=== PATIENT | female | born 1955 | race Caucasian/White ===

== ENCOUNTER 2017-01-19 16:40 | Inpatient (IN) ==
[2017-01-19] MEDS ORDERED: Acetaminophen 325 MG TABLET PO PRN (20:00)
[2017-01-19] MEDS ORDERED: Naloxone 0.4 MG/ML INJ IVP PRN (20:00)
[2017-01-19] MEDS ORDERED: *HR* Morphine 2 MG/ML SYRINGE IVP PRN (20:03)
--- NOTE | 2017-01-19 20:36 | Internal Med History&Physical ---
Date of Encounter: 01/19/17 Time of Encounter: 08:15 Assessment and Plan (1) Closed fracture of left distal femur Current visit: No Status: Acute Admitting patient. Consult orthopedics for recommendations and plan of care. Pain control. Physical therapy when able to tolerate. Patient will stay in hospital for at least 2 midnights. Moderate risk of complications from this condition. Qualifiers: Encounter type: initial encounter Fracture morphology: other fracture Qualified Code(s): S72.492A - Other fracture of lower end of left femur, initial encounter for closed fracture (2) Multiple sclerosis Current visit: Yes Status: Chronic And other home medications for this condition. Currently symptoms are well controlled. (3) Lupus Current visit: Yes Status: Chronic Continue prednisone and Imuran. Qualifiers: Systemic lupus erythematosus type: other Systemic lupus erythematosus organ involvement: other Qualified Code(s): M32.19 - Other organ or system involvement in systemic lupus erythematosus (4) Essential hypertension Current visit: Yes Status: Chronic Monitor blood pressure. Currently well controlled. Continue home medications. (5) Gastroesophageal reflux disease Current visit: Yes Status: Chronic Continue PPI. Qualifiers: Esophagitis presence: without esophagitis Qualified Code(s): K21.9 - Gastro -esophageal reflux disease without esophagitis (6) COPD (chronic obstructive pulmonary disease) Current visit: Yes Status: Chronic We will use nebs as needed. Currently not in acute exacerbation Qualifiers: COPD type: chronic bronchitis Chronic bronchitis type: simple Qualified Code(s): J41.0 - Simple chronic bronchitis Internal Medicine - H&P: HPI Chief complaint: A fall and left leg pain Admitted From: Emergency Dept Plans for Post Hospital Care: [facility] History of present illness: Ms. Gtz is a 62 year old female with a history of multiple sclerosis, lupus, transverse myelitis, COPD with decreased ambulation due to left-sided weakness presented to the ER after a fall that occurred as she was getting out of the shower. Patient appears to have slipped and fell. She began to have severe left-sided leg pain and was taken to the ER. In the ER, she had an x- ray done which showed distal left femur fracture. She was then transferred here for admission and evaluation by orthopedics. Presently the patient says the pain is about 4 out of 10 in severity and does not bother her much when she does not move and just lies in bed. Denies any numbness in her leg. At baseline, patient ambulates short distances with help of a walker. She does not have any shortness of breath with this. Her COPD is well controlled and she only uses rescue inhalers once in a while. Does not have any history of cardiac disease. Past Med Surg Social Fam HX - Past Medical History Attestation: Yes The following information was validated with the patient. Medical history: COPD, hypertension, other (MS, lupus, transverse myelitis) Psychiatric history: no psych history - Past Surgical History Surgical History: no surgical history - Social History Smoking Status: Former smoker Alcohol use: none Drug use: none - Additional Family History Additional family history: Reviewed and found to be noncontributory to this time Internal Medicine - H&P: Meds Azathioprine [Imuran] 150 mg PO DAILY 01/19/17 [History] Gabapentin [Neurontin] 200 mg PO BID 01/19/17 [History] Hydrochlorothiazide 25 mg PO DAILY 01/19/17 [History] Methocarbamol [Robaxin] 500 mg PO Q8HR 01/19/17 [History] PredniSONE [Alysha] 5 mg PO DAILY 01/19/17 [History] Allergies codeine Adverse Reaction (Verified 04/13/16 14:57) Shakiness All Systems PM: A 10-system review of systems was performed and is negative for pertinent findings except as documented above in the HPI. - Constitutional Constitutional: falls, no chills, no fever(s), no night sweats - EENT Eyes: no change in vision, no discharge, no pain, no photophobia Nose, mouth and throat: no dysphagia, no nasal discharge, no neck pain, no sore throat - Cardiovascular Cardiovascular ROS IM: no chest pain, no diaphoresis, no dyspnea, no lightheadedness, no palpitations, no syncope - Respiratory Respiratory: no cough, no dyspnea, no wheezing, no excessive phlegm production - Gastrointestinal Gastrointestinal: no abdominal pain, no diarrhea, no hematemesis, no hematochezia, no melena, no nausea, no vomiting - Genitourinary Genitourinary: no change in urinary stream, no dysuria, no flank pain, no hematuria - Musculoskeletal Musculoskeletal ROS IM: other (Left leg pain), no numbness, no tingling - Integumentary Integumentary IM: no rash, no unusual bruising - Neurological Neurological ROS: no confusion, no convulsions, no focal weakness, no numbness, no tingling, no tremor(s) - Hematologic/Lymphatic Hematologic/Lymphatic: no easy bruising - Constitutional Vitals: Temp Pulse Resp BP Pulse Ox 97.4 F L 83 19 109/73 93 L 01/19/17 20:00 01/19/17 20:00 01/19/17 20:00 01/19/17 20:00 01/19/17 20:00 General appearance: Present: cooperative, mild distress, A&O X 3, pleasant, answers questions appropriately - Eye Eye exam: Present: EOMI, PERRL, conjuntiva pink, sclera anicteric - ENT ENT exam: Present: mucous membranes moist - Neck Neck exam general surgery: Present: supple, trachea midline. Absent: lymphadenopathy - Respiratory Respiratory exam: Present: CTAB. Absent: accessory muscle use, rales, rhonchi, wheezes - Cardiovascular Cardiovascular exam: Present: RRR, +S1, +S2. Absent: diastolic murmur, gallop, rubs, systolic murmur - GI/Abdominal GI/Abdominal exam: Present: normal bowel sounds, soft, no peritoneal signs. Absent: distended, tenderness - Extremities Exam Extremities exam: Present: tenderness (Left thigh with decreased range of motion in the left lower extremity due to pain), warm, radial pulses palpable and symetrical. Absent: calf tenderness, cyanotic, pedal edema - Neurological Exam Neurological exam: Present: CN II-XII intact, oriented X3, no focal deficits. Absent: pronater drift, facial droop, speech deficit - Psychiatric Psychiatric exam: Present: normal affect, normal mood - Skin Skin exam: Present: dry, intact Internal Med - H&P Results - Labs Labs: WBC 9.6, hemoglobin 12.7, platelets 338 PT 14.5, INR 1.3, sodium 143, potassium 3.3 - Impressions Left femur x-rays shows a spiral fracture in the left distal femur region. - Attending Attestation This document has been at least partially created by [employer] recognition technology by Dr. Sanchez. Errors in grammar, wording or other phrases may exist. If errors are found after the documentation is signed, they will be addressed individually in the addendum section of this document when appropriate.
[2017-01-19] MEDS: Gabapentin 100 MG CAPSULE PO SCH (23:05)
[2017-01-19] MEDS: Methocarbamol 500 MG TABLET PO SCH (23:05)
[2017-01-19] MEDS: 0.9 % Sodium Chloride 1,000 ML IVC SCH (23:07)
[2017-01-20] MEDS: 0.9 % Sodium Chloride 1,000 ML IVC SCH ×3 (05:15→13:29)
[2017-01-20] MEDS ORDERED: Ipratropium/Albuterol Neb 3 ML IH PRN ×2 (05:32→14:14)
[2017-01-20] MEDS ORDERED: *HR* Enoxaparin 40 MG/0.4 ML SYRINGE SQ SCH (06:00)
--- NOTE | 2017-01-20 07:21 | Anesthesia Evaluation PreOp ---
Date of Encounter: 01/20/17 Time of Encounter: 07:30 - Past History Planned Operation: IM Nailing Left Femur Cardiac History: HTN Pulmonary History: COPD CASH APPLICATION REPRESENTATIVE History: Other (Multiple Sclerosis, Transverse Myelitis) Other Medical History: GERD, Other (Lupus...on prednisone and Imuran) Anesthesia History: No Prior Anesthetic Complications : No Alcohol Use: none Drug use: none Medications and Allergies Ampyra 10 PO Q12HR 01/19/17 [History] Azathioprine 50 PO TID 01/19/17 [History] Calcium 01/19/17 [History] Cetirizine HCl 10 PO DAILY 01/19/17 [History] Cyclobenzaprine [Flexeril] 10 PO DAILY 01/19/17 [History] Fish Oil 01/19/17 [History] Hydrochlorothiazide 25 PO DAILY 01/19/17 [History] Loratadine 10 PO DAILY 01/19/17 [History] Methocarbamol 500 PO Q8HR 01/19/17 [History] Mucinex 600 PO Q12HR PRN 01/19/17 [History] Neurontin 100 PO TID 01/19/17 [History] Raymond 5-325 mg PO Q6HR PRN 01/19/17 [History] Omeprazole 40 mg PO DAILY 01/19/17 [History] Oxybutynin 5 tab PO DAILY 01/19/17 [History] Potassium 3XW 01/19/17 [History] Prednisone 5 PO DAILY 01/19/17 [History] Stool Softener 01/19/17 [History] Vitamin C 01/19/17 [History] Vitamin D3 2,000 PO DAILY 01/19/17 [History] Allergies codeine Adverse Reaction (Verified 04/13/16 14:57) Shakiness - Meds/Allergy Pre-op Review Medications Reviewed: Yes Allergies Reviewed: Yes Anesthesia Results - Labs Laboratory Tests 01/19/17 01/19/17 01/19/17 16:28 16:28 16:28 Plt Count 338 PT 14.5 H INR 1.3 Sodium 143 Potassium 3.3 L BUN 14 Creatinine 0.78 - Imaging EKG: pending Anesthesia Exam O2 Sat Height 1.7 m Weight 86.183 kg O2 Sat by Pulse Oximetry 94 O2 Sat by Pulse Oximetry 92 O2 Sat by Pulse Oximetry 96 O2 Sat by Pulse Oximetry 93 Vital Signs Temp Pulse Resp BP Pulse Ox 97.4 F L 83 19 109/73 93 L 01/19/17 20:00 01/19/17 20:00 01/19/17 20:00 01/19/17 20:00 01/19/17 20:00 Vital Signs/O2 Sat/Glucose, Most Current Temp Pulse Resp BP Pulse Ox 01/20/17 06:20 97.9 F 95 18 123/67 94 L 01/20/17 04:00 98.2 F 100 17 96/61 92 L Height: 5'7 Weight: 190 lbs NPO (# of Hours): MN - HEENT Pupil (Motor): Pupils equal, EOMI Mallampati: II Oral Opening: Greater than 3 - CASH APPLICATION REPRESENTATIVE LOC: Oriented CASH APPLICATION REPRESENTATIVE Motor: Normal RUE, Normal LUE, Normal RLE, Normal LLE, Normal Face CASH APPLICATION REPRESENTATIVE Sensory: Normal: RUE, LUE, RLE, LLE, Face - Cardiac Rhythm: Regular Murmur: None JVD: No Carotid Bruit: No - Pulmonary Breath Sounds: bilateral Clear Respiratory Effort: Symmetrical Anesthesia Assess/Plan ASA Score: 3 (HTN MS Lupus Gerd COPD) Modified Yin Scale for Level of Consciousness: Cooperative, oriented, and tranquil Anesthetic Plan: General Monitoring Plan: Standard Monitors Recovery Plan: PACU (Discussed GA, agrees to proceed)
[2017-01-20] MEDS: Gabapentin 100 MG CAPSULE PO SCH ×2 (07:54→20:46)
[2017-01-20] MEDS: Methocarbamol 500 MG TABLET PO SCH ×3 (07:54→23:28)
[2017-01-20] MEDS ORDERED: Dexamethasone 4 MG/ML VIAL ONE (08:26)
[2017-01-20] MEDS ORDERED: *HR* FentaNYL (PF) 100 MCG/2 ML VIAL ONE (08:26)
[2017-01-20] MEDS ORDERED: Ondansetron 4 MG/2 ML VIAL ONE (08:26)
[2017-01-20] MEDS ORDERED: *HR* Succinylcholine 200 MG/10 ML VIAL IVP ONE (08:26)
[2017-01-20] MEDS ORDERED: Lidocaine -MPF 2% 2 ML VIAL ONE ×3 (08:26→13:30)
[2017-01-20] MEDS ORDERED: *HR* Propofol 200 MG/20 ML VIAL IVP ONE ×2 (08:26→11:35)
[2017-01-20] MEDS ORDERED: Lidocaine -MPF 4% 5 ML AMPUL ONE (08:27)
[2017-01-20] MEDS ORDERED: Albuterol 2.5 MG/3 ML NEBULIZER IH ONE (08:37)
[2017-01-20] MEDS ORDERED: Albuterol 2.5 MG/3 ML NEBULIZER ONE (08:37)
[2017-01-20] MEDS ORDERED: Acetaminophen IV 1,000 MG/100 ML INFUS..BTL ONE (08:39)
[2017-01-20] MEDS ORDERED: Famotidine 20 MG/2 ML VIAL ONE (08:39)
[2017-01-20] MEDS ORDERED: *HR* Rocuronium Bromide 50 MG/5 ML VIAL ONE (08:56)
[2017-01-20] MEDS ORDERED: predniSONE 5 MG TABLET PO SCH (09:00)
[2017-01-20] MEDS ORDERED: AMPYRA 10 MG PO SCH (09:00)
[2017-01-20] MEDS ORDERED: hydroCHLOROthiazide 25 MG TABLET PO SCH (09:00)
[2017-01-20] MEDS ORDERED: *HR* HYDROmorphone 2 MG/ML SYRINGE ONE (09:23)
[2017-01-20] MEDS ORDERED: ceFAZolin 2,000 MG in D5% in Water 100 ML IVPB ONE (10:15)
[2017-01-20] MEDS ORDERED: Ondansetron 4 MG/2 ML VIAL IVP ONE ×2 (13:18→14:14)
[2017-01-20] MEDS ORDERED: *HR* HYDROmorphone (PF) 1 MG/ML SYRINGE IVP PRN (13:18)
--- NOTE | 2017-01-20 14:02 | Orthopedic Consult Note ---
Date of Encounter: 01/20/17 Time of Encounter: 08:05 Assessment and Plan (1) Closed fracture of left distal femur Current Visit: No Status: Acute Displaced left distal femur fracture, no intra-articular extension. Plan: Recommend a retrograde femoral nail. The risks, benefits alternatives were discussed with the patient and the family. Qualifiers: Encounter type: initial encounter Fracture morphology: other fracture Qualified Code(s): S72.492A - Other fracture of lower end of left femur, initial encounter for closed fracture History of Present Illness Chief complaint: Left thigh pain HPI: Ms. Gtz is a 62 year old female who is a minimal ambulator secondary to multiple sclerosis and lupus. Patient fell last night getting out of the shower , sustaining a left distal femur fracture. She is brought to the emergency room by squad, and admitted for surgical management. She denies dizziness prior to fall, and no loss of consciousness after the fall. She sustained no head injuries. Reports no chest pain shortness breath. Patient normally uses a motorized scooter to get around but can do minimal ambulation mainly using the right lower extremity. The left lower extremity is mainly affected. Past Med Surg Social Fam HX - Past Medical History Medical history: arthritis, COPD, GERD, hypertension, other Psychiatric history: no psych history - Past Surgical History Surgical History: hysterectomy - Social History Smoking Status: Former smoker Alcohol use: none Drug use: none - Family History Mother Living Status: Still Living Hx Family Cardiac Disorders: No Hx Family Respiratory Disorders: Yes Hx Family Cancer: Yes Hx Family GI Disorders: No Hx Family Genitourinary Disorders: No Hx Family Endocrine Disorder: No Hx Family Musculoskeletal Disorders: No Hx Family Neuromuscular Disorders: No Hx Family Neurologic Disorders: No Hx Family HEENT Disorders: No Hx Family Autoimmune Disorders: No Hx Family Reproductive Disorders: No Hx Family Psychosocial Disorders: No Hx Family Medical Disorders: No Medications and Allergies Ampyra 10 PO Q12HR 01/19/17 [History] Azathioprine 50 PO TID 01/19/17 [History] Calcium 01/19/17 [History] Cetirizine HCl 10 PO DAILY 01/19/17 [History] Cyclobenzaprine [Flexeril] 10 PO DAILY 01/19/17 [History] Fish Oil 01/19/17 [History] Hydrochlorothiazide 25 PO DAILY 01/19/17 [History] Loratadine 10 PO DAILY 01/19/17 [History] Methocarbamol 500 PO Q8HR 01/19/17 [History] Mucinex 600 PO Q12HR PRN 01/19/17 [History] Neurontin 100 PO TID 01/19/17 [History] [place]ena 5-325 mg PO Q6HR PRN 01/19/17 [History] Omeprazole 40 mg PO DAILY 01/19/17 [History] Oxybutynin 5 tab PO DAILY 01/19/17 [History] Potassium 3XW 01/19/17 [History] Prednisone 5 PO DAILY 01/19/17 [History] Stool Softener 01/19/17 [History] Vitamin C 01/19/17 [History] Vitamin D3 2,000 PO DAILY 01/19/17 [History] Allergies codeine Adverse Reaction (Verified 04/13/16 14:57) Shakiness All Systems Reviewed: A 10-system review of systems was performed and is negative for pertinent findings except as documented above in the HPI. Physical Exam - Constitutional Vitals: Temp Pulse Resp BP Pulse Ox 99 F 98 16 133/95 96 01/20/17 13:42 01/20/17 13:52 01/20/17 13:52 01/20/17 13:52 01/20/17 13:52 - Fracture left femur Appearance: normal Open wound: No Compartments: soft Distal extremity neurovascularly intact: Yes (Inversion of foot which is a baseline) Proximal joint involvement: No Distal joint involvement: Yes (Limited motion of knee surgery pain) Other injury: muscle injury: no, tendon injury: no, ligament injury: no, vascular injury: no, nerve injury: no Results - Labs Labs: All other labs normal. - Diagnostic results Knee x-ray: image reviewed (Displaced distal femur fracture, spiral type) Consult Discharge Plan - Plan Referrals: Sagar Triplett DO [Primary Care Provider] -
--- NOTE | 2017-01-20 14:12 | Anesthesia Evaluation Post Op ---
Date of Encounter: 01/20/17 Time of Encounter: 14:10 - Vital Signs Vital Signs: Vital Signs/O2 Sat/Glucose, Most Current Temp Pulse Resp BP Pulse Ox 01/20/17 14:02 100 16 116/73 94 L 01/20/17 13:52 98 16 133/95 96 01/20/17 13:42 99 F 106 16 118/102 100 - Lungs Lungs: Clear Ascult./Percussion - Airway Airway: Non-obstructed - Cardiovascular Regular Rate - Mental Status Mental Status: Alert & Oriented, Answers Appropriately - Pain Pain Scale: 0 - Nausea Vomiting Nausea Vomiting: Not Present - Hydration Hydration: Ice chips - Discharge PostOp Status: Transfer Patient to floor
[2017-01-20] MEDS ORDERED: Acetaminophen 325 MG TABLET PO PRN (14:14)
[2017-01-20] MEDS ORDERED: Naloxone 0.4 MG/ML INJ IVP PRN ×2 (14:14)
[2017-01-20] MEDS ORDERED: 0.9 % Sodium Chloride 1,000 ML IVC SCH (14:14)
[2017-01-20] MEDS ORDERED: *HR* Morphine 2 MG/ML SYRINGE IVP PRN (14:14)
[2017-01-20] MEDS ORDERED: *HR* OxyCODONE Immed Rel 5 MG TABLET PO PRN (14:14)
[2017-01-20] MEDS ORDERED: Ringers Solution, Lactated 1,000 ML IVC SCH (14:15)
[2017-01-20] MEDS: ceFAZolin 2,000 MG in D5% in Water 100 ML IVPB SCH ×2 (16:08→23:28)
--- NOTE | 2017-01-20 17:13 | Internal Med Progress Note ---
Date of Encounter: 01/20/17 Time of Encounter: 17:09 - Assessment and plan (1) Closed fracture of left distal femur Current Visit: No Status: Acute Assessment and plan: Displaced left distal femur fracture, no intra-articular extension. s/p IM Nailing Left Femur today with Dr. Elias. post op care as per ortho DVT prophylaxis. Qualifiers: Encounter type: initial encounter Fracture morphology: other fracture Qualified Code(s): S72.492A - Other fracture of lower end of left femur, initial encounter for closed fracture (2) COPD (chronic obstructive pulmonary disease) Current Visit: Yes Status: Chronic Assessment and plan: stable, not on home o2. continue home inhalers Qualifiers: COPD type: chronic bronchitis Chronic bronchitis type: simple Qualified Code(s): J41.0 - Simple chronic bronchitis (3) Essential hypertension Current Visit: Yes Status: Chronic Assessment and plan: stable (4) Gastroesophageal reflux disease Current Visit: Yes Status: Chronic Assessment and plan: stable Qualifiers: Esophagitis presence: without esophagitis Qualified Code(s): K21.9 - Gastro -esophageal reflux disease without esophagitis (5) Multiple sclerosis Current Visit: Yes Status: Chronic (6) UTI (urinary tract infection) Current Visit: Yes Status: Acute Assessment and plan: will continue ceftriaxone , follow urine cx results. Qualifiers: Urinary tract infection type: acute cystitis Hematuria presence: with hematuria Qualified Code(s): N30.01 - Acute cystitis with hematuria - Time Spent With Patient 25 - 35 minutes - Subjective Interval history: seen at the bedside, appears in no acute distress pain adequately controlled reports that she has COPD and does not wear o2 at home - Constitutional Vitals: Temp Pulse Resp BP Pulse Ox 97.7 F 77 16 97/65 97 01/20/17 16:03 01/20/17 16:03 01/20/17 16:03 01/20/17 16:03 01/20/17 16:03 General appearance: Present: cooperative, A&O X 3, pleasant, answers questions appropriately Exam: - Eye Eye exam: Present: EOMI, PERRL, conjuntiva pink, sclera anicteric - ENT ENT exam: Present: mucous membranes moist - Neck Neck exam general surgery: Present: supple, trachea midline. Absent: lymphadenopathy - Respiratory Respiratory exam: Present: CTAB. Absent: accessory muscle use, rales, rhonchi, wheezes - Cardiovascular Cardiovascular exam: Present: RRR, +S1, +S2. Absent: diastolic murmur, gallop, rubs, systolic murmur - GI/Abdominal GI/Abdominal exam: Present: normal bowel sounds, soft, no peritoneal signs. Absent: distended, tenderness - Extremities Exam Extremities exam: Present: tenderness (Left thigh with decreased range of motion in the left lower extremity due to pain), warm, radial pulses palpable and symetrical. Absent: calf tenderness, cyanotic, pedal edema - Neurological Exam Neurological exam: Present: CN II-XII intact, oriented X3, no focal deficits. Absent: pronater drift, facial droop, speech deficit - Psychiatric Psychiatric exam: Present: normal affect, normal mood - Skin Skin exam: Present: dry, intact Internal Medicine: Result - Impressions Impressions Femur X-Ray 01/20/17 09:10 IMPRESSION: Status post ORIF for a closed spiral fracture distal shaft left femur. D/ / 01/20/2017 14:21:20 Henri Garcia MD / [place] Interpreting Provider: Henri Garcia MD Fluoroscopy 01/20/17 09:10 IMPRESSION: Status post ORIF for a closed spiral fracture distal shaft left femur. D/ / 01/20/2017 14:21:20 Henri Garcia MD / [place] Interpreting Provider: Henri Garcia MD - VTE Documentation of Mechanical Device: Intermittent pneumatic compression device Consult Discharge Plan - Plan Referrals: Sagar Triplett DO [Primary Care Provider] -
[2017-01-20] MEDS: *HR* HYDROcodone/Acet 5/325 mg TABLET PO PRN (18:52)
[2017-01-20] MEDS: AMPYRA 10 MG PO SCH (20:47)
[2017-01-21 04:54] LABS: Hematocrit 26.7 % (35.3-44.9); Hemoglobin 8.6 g/dL (11.5-15.4)
[2017-01-21 05:08] LABS: BUN/Creatinine Ratio 12 (6-26); Blood Urea Nitrogen 8 mg/dL (7-20); Calcium 8.3 mg/dL (8.6-10.8); Carbon Dioxide 27 mEq/L (19-29); Chloride 108 mEq/L (98-109); Glucose 96 mg/dL (70-99); Osmolality,Calculated 292 (280-300); Potassium 3.6 mEq/L (3.5-4.5); Sodium 142 mEq/L (136-145); eGFR For African Americans > 60 (> 60); eGFR For Non-African Americans > 60 (> 60)
[2017-01-21] MEDS: *HR* Enoxaparin 40 MG/0.4 ML SYRINGE SQ SCH (06:40)
--- NOTE | 2017-01-21 07:34 | Electrocardiograph Report ---
[place] [address] Test Date: 2017-01-20 Pat Name: Brenda Gtz Department: 114 Room: [facility] Gender: F Jar Filler: : 1955 Requested By: Cornelius Jin Order Number: [id number] Reading MD: Immanuel Bolden MD Measurements Intervals [place] Rate: 95 P: 82 IL: 153 QRS: 39 QRSD: 97 T: 62 QT: 367 QTc: 420 Interpretive Statements SINUS RHYTHM WITH SINUS ARRHYTHMIA Electronically Signed On 01-21-2017 7:32:16 EST by Immanuel Bolden MD
[2017-01-21] MEDS: Gabapentin 100 MG CAPSULE PO SCH ×2 (08:28→22:06)
[2017-01-21] MEDS: predniSONE 5 MG TABLET PO SCH (08:28)
[2017-01-21] MEDS: Methocarbamol 500 MG TABLET PO SCH ×2 (08:28→14:51)
[2017-01-21] MEDS: hydroCHLOROthiazide 25 MG TABLET PO SCH (08:28)
[2017-01-21] MEDS: AMPYRA 10 MG PO SCH ×2 (08:29→22:06)
[2017-01-21] MEDS: *HR* HYDROcodone/Acet 5/325 mg TABLET PO PRN ×2 (09:46→22:10)
--- NOTE | 2017-01-21 16:11 | Orthopedics Progress Note ---
Date of Encounter: 01/21/17 Time of Encounter: 12:50 - Assessment and Plan (1) Closed fracture of left distal femur Current Visit: No Status: Acute POD#1 - Patient doing well. pain well controlled. May now DC brace and begin gentle ROM of knee. Continue NWB. Plan for her to go to ECF upon discharge Will follow up with Kelsey Canales PA-C in [facility] office in 2 weeks. Qualifiers: Encounter type: initial encounter Fracture morphology: other fracture Qualified Code(s): S72.492A - Other fracture of lower end of left femur, initial encounter for closed fracture Subjective Principal diagnosis: POD#1 s/p left retrograde femoral nail Interval history: Patient doing well today with no events overnight and no concerns. Pain well controlled. Denies new n/t in lower extremities but does have chronic numbness. Afebrile. Currently receiving 1 unit blood. Hgb 8.6 Objective Vital signs: Vital Signs Temp Pulse Resp BP Pulse Ox 01/21/17 13:03 98.2 F 102 16 126/77 95 01/21/17 12:48 98.2 F 104 16 122/76 96 01/21/17 11:02 97.9 F 98 16 118/68 93 L 01/21/17 06:39 98.1 F 96 14 101/64 95 01/21/17 04:10 98.2 F 93 18 102/61 93 L 01/20/17 23:31 98.0 F 100 14 104/65 94 L 01/20/17 20:36 98.5 F 97 16 112/72 95 01/20/17 18:52 95 01/20/17 17:10 97.3 F L 102 16 113/71 98 Intake and Output 01/21/17 01/21/17 01/21/17 07:59 15:59 23:59 Intake Total 100 / 100 580 / 580 Output Total 650 / 650 Balance 100 / 100 -70 / -70 Intake: IV Fluids 100 / 100 100 / 100 Ancef 2,000 MG In 100 / 100 Dextrose 5% 100 ML @ 200 mls/hr IVPB Q8HR [facility] Rx#: [id number] Rocephin 1,000 MG In 100 / 100 Dextrose 5% (Minibag+) 100 ML 100 ML @ 200 mls/ hr IVPB DAILY [facility] Rx#: [id number] Oral 480 / 480 Blood Product 0 / 0 Rbcs Leuko Poor As-1 0 / 0 Unit [id number] Output: Catheter 650 / 650 Other: Meal Breakfast Percent of Meal Consumed 30% Incision: clean and dry (brace and post-op dressings intact, no visible drainage , good dorsiflexion of foot, NV intact) - Labs CBC & BMP: 01/21/17 04:11 01/21/17 04:11 Labs: Abnormal lab results Hgb 8.6 g/dL (11.5-15.4) L D 01/21/17 04:11 Hct 26.7 % (35.3-44.9) L 01/21/17 04:11 Calcium 8.3 mg/dL (8.6-10.8) L D 01/21/17 04:11 - VTE Documentation of Mechanical Device: Intermittent pneumatic compression device Consult Discharge Plan - Plan Referrals: Sagar Triplett DO [Primary Care Provider] -
--- NOTE | 2017-01-21 17:11 | Internal Med Progress Note ---
Date of Encounter: 01/21/17 Time of Encounter: 17:08 - Assessment and plan (1) Closed fracture of left distal femur Current Visit: No Status: Acute Assessment and plan: Displaced left distal femur fracture, no intra-articular extension. s/p IM Nailing Left Femur with Dr. Elias. POD#1 - Patient doing well. pain well controlled. post op care as per ortho DVT prophylaxis. Qualifiers: Encounter type: initial encounter Fracture morphology: other fracture Qualified Code(s): S72.492A - Other fracture of lower end of left femur, initial encounter for closed fracture (2) COPD (chronic obstructive pulmonary disease) Current Visit: Yes Status: Chronic Assessment and plan: stable, not on home o2. continue home inhalers Qualifiers: COPD type: chronic bronchitis Chronic bronchitis type: simple Qualified Code(s): J41.0 - Simple chronic bronchitis (3) Essential hypertension Current Visit: Yes Status: Chronic Assessment and plan: stable (4) Gastroesophageal reflux disease Current Visit: Yes Status: Chronic Assessment and plan: stable Qualifiers: Esophagitis presence: without esophagitis Qualified Code(s): K21.9 - Gastro -esophageal reflux disease without esophagitis (5) Multiple sclerosis Current Visit: Yes Status: Chronic (6) UTI (urinary tract infection) Current Visit: Yes Status: Acute Assessment and plan: [facility] to oral at [facility]. Qualifiers: Urinary tract infection type: acute cystitis Hematuria presence: with hematuria Qualified Code(s): N30.01 - Acute cystitis with hematuria - Time Spent With Patient 25 - 35 minutes - Subjective Interval history: seen at the bedside, appears in no acute distress pain adequately controlled reports that she has COPD and does not wear o2 at home Discharged today to go to [facility], awaiting bed availability - Constitutional Vitals: Temp Pulse Resp BP Pulse Ox 98.2 F 109 18 108/74 95 01/21/17 16:00 01/21/17 16:00 01/21/17 16:00 01/21/17 16:00 01/21/17 16:00 General appearance: Present: cooperative, A&O X 3, pleasant, answers questions appropriately Internal Medicine: Result - Labs CBC & Chem 7: 01/21/17 04:11 01/21/17 04:11 Labs: Short CBC 01/21/17 Range/Units 04:11 Hgb 8.6 L D (11.5-15.4) g/dL Hct 26.7 L (35.3-44.9) % BMP 01/21/17 04:11 Sodium 142 Potassium 3.6 Chloride 108 Carbon Dioxide 27 BUN 8 Creatinine 0.65 Glucose 96 Calcium 8.3 L D - VTE Documentation of Mechanical Device: Intermittent pneumatic compression device Consult Discharge Plan - Plan Referrals: Sagar Triplett DO [Primary Care Provider] -
[2017-01-22] MEDS: Methocarbamol 500 MG TABLET PO SCH ×3 (00:20→16:02)
[2017-01-22] MEDS: *HR* Enoxaparin 40 MG/0.4 ML SYRINGE SQ SCH (05:45)
[2017-01-22] MEDS: *HR* HYDROcodone/Acet 5/325 mg TABLET PO PRN (06:20)
[2017-01-22 08:19] LABS: Hematocrit 31.1 % (35.3-44.9)
[2017-01-22 08:25] LABS: Hemoglobin 10.5 g/dL (11.5-15.4)
[2017-01-22 08:32] LABS: BUN/Creatinine Ratio 16 (6-26); Blood Urea Nitrogen 9 mg/dL (7-20); Calcium 8.3 mg/dL (8.6-10.8); Carbon Dioxide 26 mEq/L (19-29); Chloride 106 mEq/L (98-109); Glucose 72 mg/dL (70-99); Osmolality,Calculated 293 (280-300); Potassium 3.5 mEq/L (3.5-4.5); Sodium 143 mEq/L (136-145); eGFR For African Americans > 60 (> 60); eGFR For Non-African Americans > 60 (> 60)
--- NOTE | 2017-01-22 09:56 | Operative Note ---
Date of procedure: 01/20/17 Pre-op diagnosis: Left distal femur fracture, closed, extra articular Post-op diagnosis: same Procedure: Left femur intramedullary nailing Implants: Synthes retrograde femoral nail Kinamed super cable Anesthesia: LANE Surgeon: Bandar Elias Estimated blood loss (cc): 200 Specimen: 0 Condition: stable Disposition: PACU Procedure in Detail: The patient received IV antibiotics in the holding area. She was brought to the operating room, sign in was performed. The patient underwent general anesthesia on the hospital bed. She was then transferred to the fracture table in supine position. The affected left lower extremity was positioned within the knee at the end of the table to allow flexion, and the contralateral lower extremity in a well-padded limb carty with a hip flexed and abducted out of the way. Fluoroscopy was then brought in, the fractures visualized, and the fracture reduced. We checked on AP and true lateral view of the distal femur. This appeared to be a simple spiral fracture in the supracondylar region. Once satisfactory the left lower extremity from the pelvis down to the ankle, was prepped and draped in usual sterile fashion. A timeout was performed. I palpated out and marked off the patella as well as the tibial tubercle. The patella tendon was traced out. A 4 cm longitudinal incision was made over the medial edge of the patella tendon. The subcutaneous tissue was bluntly spread. The paratenon on the medial side was sharply split, followed by incision on the medial side of the patella tendon. The guidewire was then introduced. Fluoroscopy was used to position the guidewire making sure all it was centered in the intercondylar notch on the AP view and the just anterior to Blumensatt's line on the lateral view. The initial drill was used to open up the distal femur. A ball-tipped guidewire with a small curve was then introduced, and driven up the shaft. The fracture was reduced with traction and manual manipulation , derotating it to reduce it. We checked fluoroscopy make sure the wire was well centered. The length of the guide wire was measured, and decided to use a 380 mm long nail. We start off with a 10 mm reamer. This had no resistance. He went to a 12 mm reamer. This gave mild chatter. Next went up to a 13 mm reamer, which gave moderate chatter, finally a 13.5 mm reamer. Reaming was done while holding the reduction well. We chose a 12 mm diameter by 380 mm long retrograde femoral nail. The jig handle was applied to the nail. The nail was then introduced over the guidewire, tapping it passed the isthmus, maintaining a reduction and tapping across the fracture site. The was tapped up to the lesser trochanter, and repairing the distal end of the nail beneath Blumensatt's line. The fracture appeared slightly rotated. It was set to lock the fracture distally. Since the patient had osteopenic bone, it was decided to use the spiral blade. The appropriate jig attachment was placed. The trocar was positioned in skin and a 2 cm long incision was made. The soft tissues were spread, puncturing through the iliotibial band. I drilled in extended technique and measured. A 75 mm spiral blade was chosen. This was tapped in place in standard technique. Next a distal locking screw was placed. The incision was extended another 2 centimeters proximally and a 5 mm x 74 mm long screws placed from lateral to medial in standard technique. It was seen that the distal fragment was bowing up apex anterior. The spiral blade was removed, I could feel the fracture manually through the incision. The fracture was not a simple spiral fracture but had multiple extensions. The incision was extended another for some years proximally, extending the iliotibial band split. A lion jaw clamp was placed across the fracture and reducing it. The drill holes made again fully spiral blade and it was replaced. Proximally, The technique of perfect circles was utilized, a 2 cm long she will incision was made and bluntly spreading down to for the anterior cortex. The screw was placed in standard technique, utilizing perfect circles for drilling. A 32 mm screw was placed. This was followed by an another anterior to posterior screw, also positioning with perfect circles on x-ray. This is placed in static mode. The more proximal slotted hole. Using a 36 mm long screw. Finally the lion jaw clamp was repositioned giving access to place another distal screw in the more proximal slotted hole in static mode. A 56 mm screw was placed in standard technique. However when the clamp was reduced, the distal fragment was still spreading up anteriorly at the fracture site. The overall alignment of the femur appeared to be good with good placement of the nail. It was set to stabilize the fracture fragment with a Kinamed super cable. The cable passer was carefully placed around the femur fracture level making sure to be very careful not to penetrate the deep medial soft tissue. The cable was passed inside technique. While trying to tie down the cable, the jig was not appropriately positioned in the cable broke. A second wire was placed and once again the jig slightly off angle and cable broke. A third cable was placed, make sure adequate retraction and squaring the jig against the clip. This was tightened down midway between low and high tension, engaging the locking mechanism. The cables ends were then cut. This gave adequate but not perfect reduction. I did not want strip more soft tissue, and the reduction was acceptable. A flush end cap was applied at the distal end of the nail. The wounds were cultured with normal saline. I packed in 10 mL of DBM/cancellus bone from the fracture site. The iliotibial band was then closed with #1 Vicryl figure-of- eight to changes. Fuoroscopy shots were taken and saved. It was noted that the 36 mm proximal screw was too long, and changed out to a 32 mm screw also. The wounds were copiously irrigated with normal saline. The edge of the patella tendon was closed with 0 Vicryl [id number], followed by closure of the peritenon with 2-0 Vicryl [id number] sutures. The knee incision was closed with 2-0 Vicryl subcutaneous layer followed by luca. The other incisions were also closed with 2-0 Vicryl subcutaneous layer followed by luca. Sterile dressings were applied followed by a knee immobilizer The patient was extubated and taken to recovery in sstable condition.
[2017-01-22] MEDS: Gabapentin 100 MG CAPSULE PO SCH ×2 (09:57→22:13)
[2017-01-22] MEDS: hydroCHLOROthiazide 25 MG TABLET PO SCH (09:58)
[2017-01-22] MEDS: predniSONE 5 MG TABLET PO SCH (09:58)
[2017-01-22] MEDS: AMPYRA 10 MG PO SCH ×2 (09:59→22:14)
--- NOTE | 2017-01-22 12:09 | Discharge Summary ---
Date of Encounter: 01/23/17 Time of Encounter: 09:30 - Discharge Medications Home Medications: Azathioprine [Imuran] 50 mg PO AD 01/20/17 [History] Calcium Carbonate/Vitamin D3 [Calcium 600 + Vit D Softgel] 1 cap PO BID [History] Cetirizine HCl [Allergy Relief] 10 mg PO DAILY 01/20/17 [History] Cyclobenzaprine [Flexeril] 10 mg PO TID PRN 01/20/17 [History] Dalfampridine [Ampyra] 10 mg PO BID 01/20/17 [History] Docusate [Colace] 100 mg PO DAILY 01/20/17 [History] Gabapentin [Neurontin] 200 mg PO HS 01/20/17 [History] Gabapentin [Neurontin] 300 mg PO QAM 01/20/17 [History] HYDROcodone/Acet 5/325 mg [[place] 5-325 mg] 1 tab PO Q6H PRN 01/20/17 [History] Hydrochlorothiazide [Hydrochlorothiazide] 25 mg PO DAILY 01/20/17 [History] Methocarbamol [Robaxin] 500 mg PO Q8H 01/20/17 [History] Omeprazole [PriLOSEC] 40 mg PO DAILY 01/20/17 [History] Oxybutynin [Ditropan] 5 mg PO TID 01/20/17 [History] PredniSONE [Prednisone] 5 mg PO DAILY 01/20/17 [History] Allergies/Adverse Reactions: Allergies codeine Adverse Reaction (Verified 04/13/16 14:57) Shakiness Procedures/tests Complete & Pending: Procedures Performed prior 72 hours Category Date Time Status ECG 12 lead ECG [ECG] Stat Y 01/20/17 07:29 Completed Date of admission: 01/19/17 20:00 Primary care physician: Sagar Triplett DO Consults: 01/19/17 22:25 Consult to Integrated Logistics Operations Manager [CONS] Routine Reason for SW Consult: rehab placement 01/20/17 14:14 Consult to Occupational Therapy [CONS] Routine Comment: Evaluate, develop and implement POC Consult to Orthopedic Navigator [CONS] [CONS] Routine Consult to Physical Therapy [CONS] Routine Comment: Evaluate, develop and implement POC Consult to Integrated Logistics Operations Manager [CONS] Routine Reason for SW Consult: rehab RT Post Op Consult [CONS] Routine - Discharge Instructions Follow Up With: Kelsey Canales, PAC [Physician Shipbuilding Draftsperson] - 01/28/17 3:30 pm Sagar Triplett, DO [Primary Care Provider] - Hospital course: Ms. Gtz is a 62 year old female - Time Spent with Patient Total time spent providing and/or coordinating discharge services: - Constitutional Vitals: Temp Pulse Resp BP Pulse Ox 98.1 F 101 16 138/82 95 01/22/17 10:36 01/22/17 10:36 01/22/17 10:36 01/22/17 10:36 01/22/17 10:36 General appearance: Present: cooperative, A&O X 3, pleasant, answers questions appropriately - Head Head exam: Present: atraumatic, normocephalic - Eye Eye exam: Present: PERRL, conjuntiva pink, sclera anicteric Pupils: Present: PERRL - Neck Neck exam general surgery: Present: supple, trachea midline. Absent: lymphadenopathy - Respiratory Respiratory exam: Present: CTAB. Absent: accessory muscle use, rales, rhonchi, wheezes - Cardiovascular Cardiovascular exam: Present: RRR, +S1, +S2. Absent: diastolic murmur, gallop, rubs, systolic murmur - GI/Abdominal GI/Abdominal exam: Present: normal bowel sounds, soft, no peritoneal signs. Absent: distended, tenderness - Extremities Exam Extremities exam: Present: warm, radial pulses palpable and symetrical. Absent : calf tenderness, cyanotic, pedal edema Additional comments: LLE in cast Dorsalis pedis present bilaterally Able to move toes without difficulty - Neurological Exam Neurological exam: Present: alert, oriented X3, no focal deficits, strengths equal and symetr throughout. Absent: pronater drift, facial droop, speech deficit - Skin Skin exam: Present: dry, intact - VTE Documentation of Mechanical Device: Intermittent pneumatic compression device
[2017-01-22] MEDS: Cholecalciferol (D-3) 1,000 UNIT TABLET PO SCH (12:46)
--- NOTE | 2017-01-22 16:19 | Orthopedics Progress Note ---
Date of Encounter: 01/22/17 Time of Encounter: 15:45 - Assessment and Plan (1) Closed fracture of left distal femur Current Visit: No Status: Acute POD#2 - Patient doing well. pain well controlled. Continue gentle ROM of knee. Continue NWB. Plan for her to go to [facility] upon discharge. Waiting on insurance per patient. Will follow up with Kelsey Canales PA-C in [facility] office on 02/04/17 at 2:15. Qualifiers: Encounter type: initial encounter Fracture morphology: other fracture Qualified Code(s): S72.492A - Other fracture of lower end of left femur, initial encounter for closed fracture Subjective Principal diagnosis: POD#1 s/p left retrograde femoral nail Interval history: Patient doing well today with no events overnight and no concerns other than she has not had BM since surgery but has received stool softener today. Pain in leg well controlled. Denies new n/t in lower extremities but does have chronic numbness. Afebrile. Objective Vital signs: Vital Signs Temp Pulse Resp BP Pulse Ox 01/22/17 15:10 98.3 F 104 16 143/83 95 01/22/17 10:36 98.1 F 101 16 138/82 95 01/22/17 09:00 95 01/22/17 06:53 99.1 F 104 16 149/88 93 L 01/22/17 00:24 98.0 F 77 17 117/66 92 L 01/21/17 19:22 98.1 F 78 17 121/69 92 L Intake and Output 01/22/17 01/22/17 01/22/17 07:59 15:59 23:59 Intake Total 220 / 220 Output Total 1250 / 1250 150 / 150 Balance -1250 / -1250 70 / 70 Intake: IV Fluids 100 / 100 Rocephin 1,000 MG In 100 / 100 Dextrose 5% (Minibag+) 100 ML 100 ML @ 200 mls/ hr IVPB DAILY [facility] Rx#: [id number] Oral 120 / 120 Output: Urine 150 / 150 Catheter 1250 / 1250 Other: Meal Lunch Percent of Meal Consumed 40% Incision: clean and dry (dressings clean, dry, and intact) - Labs CBC & BMP: 01/22/17 07:35 01/22/17 07:35 Labs: Abnormal lab results Hgb 10.5 g/dL (11.5-15.4) L D 01/22/17 07:35 Hct 31.1 % (35.3-44.9) L 01/22/17 07:35 Calcium 8.3 mg/dL (8.6-10.8) L 01/22/17 07:35 - VTE Documentation of Mechanical Device: Intermittent pneumatic compression device Consult Discharge Plan - Plan Referrals: Kelsey Canales, PAC [Physician Flattening Machine Operator] - 01/28/17 3:30 pm Sagar Triplett, DO [Primary Care Provider] -
--- NOTE | 2017-01-22 17:28 | Internal Med Progress Note ---
Date of Encounter: 01/22/17 Time of Encounter: 09:00 - Assessment and plan (1) UTI (urinary tract infection) Current Visit: Yes Status: Acute Assessment and plan: will continue ceftriaxone while inpatient, change to oral at dc. Qualifiers: Urinary tract infection type: acute cystitis Hematuria presence: with hematuria Qualified Code(s): N30.01 - Acute cystitis with hematuria (2) COPD (chronic obstructive pulmonary disease) Current Visit: Yes Status: Chronic Assessment and plan: stable, not on home o2. continue home inhalers Qualifiers: COPD type: chronic bronchitis Chronic bronchitis type: simple Qualified Code(s): J41.0 - Simple chronic bronchitis (3) Essential hypertension Current Visit: Yes Status: Chronic Assessment and plan: stable (4) Gastroesophageal reflux disease Current Visit: Yes Status: Chronic Assessment and plan: stable Qualifiers: Esophagitis presence: without esophagitis Qualified Code(s): K21.9 - Gastro -esophageal reflux disease without esophagitis (5) Lupus Current Visit: Yes Status: Chronic Qualifiers: Systemic lupus erythematosus type: other Systemic lupus erythematosus organ involvement: other Qualified Code(s): M32.19 - Other organ or system involvement in systemic lupus erythematosus (6) Multiple sclerosis Current Visit: Yes Status: Chronic (7) Closed fracture of left distal femur Current Visit: No Status: Acute Assessment and plan: Displaced left distal femur fracture, no intra-articular extension. s/p IM Nailing Left Femur with Dr. Elias. POD#2 - Patient doing well. pain well controlled. post op care as per ortho DVT prophylaxis. Qualifiers: Encounter type: initial encounter Fracture morphology: other fracture Qualified Code(s): S72.492A - Other fracture of lower end of left femur, initial encounter for closed fracture - Subjective Interval history: seen at the bedside, appears in no acute distress pain adequately controlled reports that she has COPD and does not wear o2 at home Stable [facility], awaiting bed availability and authorization - Constitutional Vitals: Temp Pulse Resp BP Pulse Ox 98.3 F 104 16 143/83 95 01/22/17 15:10 01/22/17 15:10 01/22/17 15:10 01/22/17 15:10 01/22/17 15:10 General appearance: Present: cooperative, mild distress, A&O X 3, pleasant, answers questions appropriately - Head Head exam: Present: atraumatic, normocephalic - Eye Eye exam: Present: PERRL, conjuntiva pink, sclera anicteric Pupils: Present: PERRL - Neck Neck exam general surgery: Present: supple, trachea midline. Absent: lymphadenopathy - Respiratory Respiratory exam: Present: CTAB. Absent: accessory muscle use, rales, rhonchi, wheezes - Cardiovascular Cardiovascular exam: Present: RRR, +S1, +S2. Absent: diastolic murmur, gallop, rubs, systolic murmur - GI/Abdominal GI/Abdominal exam: Present: normal bowel sounds, soft, no peritoneal signs. Absent: distended, tenderness - Extremities Exam Extremities exam: Present: radial pulses palpable and symetrical. Absent: pedal edema Additional comments: LLE in cast - Neurological Exam Neurological exam: Present: CN II-XII intact, oriented X3, no focal deficits. Absent: pronater drift, facial droop, speech deficit - Skin Skin exam: Present: dry, intact Internal Medicine: Result - Labs CBC & Chem 7: 01/22/17 07:35 01/22/17 07:35 Labs: Short CBC 01/22/17 Range/Units 07:35 Hgb 10.5 L D (11.5-15.4) g/dL Hct 31.1 L (35.3-44.9) % BMP 01/22/17 07:35 Sodium 143 Potassium 3.5 Chloride 106 Carbon Dioxide 26 BUN 9 Creatinine 0.57 Glucose 72 Calcium 8.3 L - VTE Documentation of Mechanical Device: Intermittent pneumatic compression device Consult Discharge Plan - Plan Referrals: Kelsey Canales, PAC [Physician Erp Engineer] - 01/28/17 3:30 pm Sagar Triplett, DO [Primary Care Provider] -
[2017-01-23] MEDS: Methocarbamol 500 MG TABLET PO SCH ×2 (00:42→09:33)
[2017-01-23] MEDS: *HR* Enoxaparin 40 MG/0.4 ML SYRINGE SQ SCH (05:08)
[2017-01-23] MEDS: Cholecalciferol (D-3) 1,000 UNIT TABLET PO SCH (09:32)
[2017-01-23] MEDS: hydroCHLOROthiazide 25 MG TABLET PO SCH (09:32)
[2017-01-23] MEDS: Gabapentin 100 MG CAPSULE PO SCH (09:33)
[2017-01-23] MEDS: predniSONE 5 MG TABLET PO SCH (09:33)
[2017-01-23] MEDS: AMPYRA 10 MG PO SCH (09:34)
[2017-01-23] MEDS ORDERED: Ondansetron 4 MG/2 ML VIAL IVP PRN (10:42)
[2017-01-23] MEDS ORDERED: Sennosides 8.6 MG TABLET PO SCH (10:45)
[2017-01-23 11:47] VITALS: BP 104/65
--- NOTE | 2017-01-23 12:12 | Physician Discharge Referral ---
ExtendedCare Referral Info Transfer To: ECF/SNF Provider in Charge after Transfer: PCP Institutional Level of Care: Skilled - Diagnosis (1) UTI (urinary tract infection) Priority: Primary Status: Acute (2) COPD (chronic obstructive pulmonary disease) Priority: Secondary Status: Chronic (3) Essential hypertension Priority: Secondary Status: Chronic (4) Gastroesophageal reflux disease Priority: Secondary Status: Chronic (5) Lupus Priority: Secondary Status: Chronic (6) Multiple sclerosis Priority: Secondary Status: Chronic (7) Closed fracture of left distal femur Priority: Primary Status: Acute Prognosis: Good Aware of Diagnosis: Patient Aware of Prognosis: Patient - Transfer Medications Prescriptions: HYDROcodone/Acet 5/325 mg [[place] 5-325 mg] 1 tab PO Q6H PRN #20 tablet PRN Reason: Pain Home Medications: Azathioprine [Imuran] 50 mg PO AD 01/20/17 [History] Calcium Carbonate/Vitamin D3 [Calcium 600 + Vit D Softgel] 1 cap PO BID [History] Cetirizine HCl [Allergy Relief] 10 mg PO DAILY 01/20/17 [History] Cyclobenzaprine [Flexeril] 10 mg PO TID PRN 01/20/17 [History] Dalfampridine [Ampyra] 10 mg PO BID 01/20/17 [History] Docusate [Colace] 100 mg PO DAILY 01/20/17 [History] Gabapentin [Neurontin] 200 mg PO HS 01/20/17 [History] Gabapentin [Neurontin] 300 mg PO QAM 01/20/17 [History] Hydrochlorothiazide 25 mg PO DAILY 01/20/17 [History] Methocarbamol [Robaxin] 500 mg PO Q8H 01/20/17 [History] Omeprazole [PriLOSEC] 40 mg PO DAILY 01/20/17 [History] Oxybutynin [Ditropan] 5 mg PO TID 01/20/17 [History] PredniSONE [Prednisone] 5 mg PO DAILY 01/20/17 [History] Acetaminophen [Tylenol] 650 mg PO Q6HR PRN #0 tablet 01/23/17 [Rx] Cholecalciferol (D-3) [Vitamin D] 2,000 unit PO DAILY tablet 01/23/17 [Rx] HYDROcodone/Acet 5/325 mg [[place] 5-325 mg] 1 tab PO Q6H PRN #20 tablet 01/23/17 [Rx] Methocarbamol [Robaxin] 500 mg PO Q8HR tablet 01/23/17 [Rx] Omeprazole [PriLOSEC] 40 mg PO DAILY capsule. 01/23/17 [Rx] Allergies/Adverse Reactions: Allergies codeine Adverse Reaction (Verified 04/13/16 14:57) Shakiness - Respiratory Orders Smoking Cessation: Smoking cessation has been advised. For more information, call the [place] Tobacco Quit Line at 2-910-NBLV-NOW. - Advance Directives Code Status: Full Code - Mobility Orders Other (As per physical therapy) - Rehabiliation Orders Rehab Potential: Fair - Diet Orders Cardiac CERTIFICATION: I certify that the transfer of the above named patient to an Extended Care Facility is necessary for the continuing treatment of the diagnosis listed. The above information is true and accurate reflection of patient's current condition. Confidential - Redisclosure prohibited without a patient's written consent.
--- NOTE | 2017-01-23 12:14 | Discharge Summary ---
Date of Encounter: 01/23/17 Time of Encounter: 12:13 - Discharge Diagnosis (1) UTI (urinary tract infection) Priority: Primary Status: Acute Qualifiers: Urinary tract infection type: acute cystitis Hematuria presence: with hematuria Qualified Code(s): N30.01 - Acute cystitis with hematuria (2) COPD (chronic obstructive pulmonary disease) Priority: Secondary Status: Chronic Qualifiers: COPD type: chronic bronchitis Chronic bronchitis type: simple Qualified Code(s): J41.0 - Simple chronic bronchitis (3) Essential hypertension Priority: Secondary Status: Chronic (4) Gastroesophageal reflux disease Priority: Secondary Status: Chronic Qualifiers: Esophagitis presence: without esophagitis Qualified Code(s): K21.9 - Gastro -esophageal reflux disease without esophagitis (5) Lupus Priority: Secondary Status: Chronic Qualifiers: Systemic lupus erythematosus type: other Systemic lupus erythematosus organ involvement: other Qualified Code(s): M32.19 - Other organ or system involvement in systemic lupus erythematosus (6) Multiple sclerosis Priority: Secondary Status: Chronic (7) Closed fracture of left distal femur Priority: Primary Status: Acute Qualifiers: Encounter type: initial encounter Fracture morphology: other fracture Qualified Code(s): S72.492A - Other fracture of lower end of left femur, initial encounter for closed fracture - Discharge Medications Prescriptions: Cefdinir [Omnicef] 300 mg PO DAILY #4 capsule HYDROcodone/Acet 5/325 mg [Cadogan 5-325 mg] 1 tab PO Q6H PRN #20 tablet PRN Reason: Pain Home Medications: Azathioprine [Imuran] 50 mg PO AD 01/20/17 [History] Calcium Carbonate/Vitamin D3 [Calcium 600 + Vit D Softgel] 1 cap PO BID [History] Cetirizine HCl [Allergy Relief] 10 mg PO DAILY 01/20/17 [History] Cyclobenzaprine [Flexeril] 10 mg PO TID PRN 01/20/17 [History] Dalfampridine [Ampyra] 10 mg PO BID 01/20/17 [History] Docusate [Colace] 100 mg PO DAILY 01/20/17 [History] Gabapentin [Neurontin] 200 mg PO HS 01/20/17 [History] Gabapentin [Neurontin] 300 mg PO QAM 01/20/17 [History] Hydrochlorothiazide 25 mg PO DAILY 01/20/17 [History] Methocarbamol [Robaxin] 500 mg PO Q8H 01/20/17 [History] Omeprazole [PriLOSEC] 40 mg PO DAILY 01/20/17 [History] Oxybutynin [Ditropan] 5 mg PO TID 01/20/17 [History] PredniSONE [Prednisone] 5 mg PO DAILY 01/20/17 [History] Acetaminophen [Tylenol] 650 mg PO Q6HR PRN #0 tablet 01/23/17 [Rx] Cefdinir [Omnicef] 300 mg PO DAILY #4 capsule 01/23/17 [Rx] Cholecalciferol (D-3) [Vitamin D] 2,000 unit PO DAILY tablet 01/23/17 [Rx] HYDROcodone/Acet 5/325 mg [Cadogan 5-325 mg] 1 tab PO Q6H PRN #20 tablet 01/23/17 [Rx] Methocarbamol [Robaxin] 500 mg PO Q8HR tablet 01/23/17 [Rx] Omeprazole [PriLOSEC] 40 mg PO DAILY capsule. 01/23/17 [Rx] Allergies/Adverse Reactions: Allergies codeine Adverse Reaction (Verified 04/13/16 14:57) [facility] Date of admission: 01/19/17 20:00 Primary care physician: Sagar Triplett DO Consults: 01/19/17 22:25 Consult to English Instructor [CONS] Routine Reason for Consult: rehab placement 01/20/17 14:14 Consult to Occupational Therapy [CONS] Routine Comment: Evaluate, develop and implement POC Consult to Orthopedic Navigator [CONS] [CONS] Routine Consult to Physical Therapy [CONS] Routine Comment: Evaluate, develop and implement POC Consult to English Instructor [CONS] Routine Reason for Consult: rehab RT Post Op Consult [CONS] Routine Discharging clinician: Gigi Bruno Anticipated date of discharge: 01/23/17 - Patient Status Disposition: Transfer SNF Condition: Fair Functional capacity at discharge: bed bound Overall status at discharge: patient is progressing back to baseline - Discharge Instructions Follow Up With: Kelsey Canales PAC [Physician Wildlife Refuge Manager] - 02/04/17 2:15 pm Sagar Triplett DO [Primary Care Provider] - Additional Instructions: Discharge Instructions: Total Hip Replacement Please call [facility] ([phone]), your Primary Care Physician, or report to the Emergency Room if you have any of the following symptoms: Nausea, vomiting, fever greater that 101.5, swelling, chest pain, shortness of breath, increased pain/redness/drainage/odor for your incision site, numbness/ tingling, or any other concerning symptoms. ACTIVITY:Weight-bearing as tolerated for 8 weeks with hip dislocation precautions that physical therapy taught you. You may progress as tolerated under the guidance of your physical therapist. You do not need to sleep with a pillow between your legs. You can also seep on the operative side or on your stomach. MEDICATIONS: Upon discharge resume your home medications. Take all the medications as prescribed. Take a stool softener if taking narcotic pain medications. Stool softeners are only effective if you drink enough fluids. Drink 6-8 glass of water or fluids a day, unless this is not allowed for another health problem. Despite using stool softeners, if you haven't had a bowel movement in 3 days, please switch to a gentle laxative. Gentle laxatives are sold over the counter. You should have a bowel movement within 24 hours, if not call the office. You will be discharged from the hospital with a prescription for pain medication. You are encouraged to decrease the use of narcotic pain medication as tolerated. Should you require a refill, please call the office. [facility] prescribes narcotic pain medication for only 4-6 weeks after surgery. If you require pain medication beyond this time periord, you may be referred to your Primary Care Physician or to the Pain Clinic for further evaluation. Plan ahead for refills on pain medication as many narcotics either need to be picked up at the office or mailed. It is best to call 48-72 hours in advance of needing a prescription refill so you don't run out of medication. To help control the post-operative pain, you may take NSAIDs (Aleve,Advil, Motrin, ibuprofen, naprosyn) or Tylenol as prescribed on the bottle in addition to the pain medication. ANTICOAGULATION (blood thinners): Continue your Aspirin, Lovenox or Coumadin as prescribed to help prevent a blood clot in the leg or in the lungs. As long as your incision remains dry and you tolerate the NSAIDs (Aleve, Advil, Motrin, ibuprofen, naprosyn), it is OK to use the NSAIDS while you are taking your anticoagulation medication. Should your incision start to drain, stop the NSAID and contact our office. Common symptoms of blood clot in the legs include: localized pain, swelling, calf tenderness, redness or discoloration of the skin. Blood clot in the lung symptoms include: shortness of breath, rapid pulse, sweating, and chest pain that worsens with deep breathing, coughing up blood, lightheadedness, feelings of anxiety. If you experience any of these symptoms notify your physician immediately, go to the emergency room, or if having trouble breathing, call 911. WOUND CARE: Leave the dressing on for 7 days. You may change the dressing if it is saturated greater than 50%. You can shower but not a tub bath or submerge your incision in water. Wash your hands with antibacterial soap, rinse and dry prior to any wound care. If you have luca the visiting nurse or rehab facility can remove the stapes 10-14 days after surgery and place steri-strips across the wound. Leave the steri-strips in place until they fall off on their won. You may let water from the shower run on top of the steri-stirips. If you do not have a visiting nurse or rehab facility, you will need to return to the office at 10-14 days for the luca to be removed. FOLLOW-UP: Please follow up with your surgeon in the orthopedic clinic in 6 weeks from the day of surgery. If you have luca that need to be removed, you will need to come back to the office in 10-14 days from the day of surgery. - Diet and Activity Activity: as per physical therapy, resume usual activities as tolerated Diet: low fat, low cholesterol, low salt diet Interval History: Ms. Gtz is a 62 year old female with a history of multiple sclerosis, lupus, transverse myelitis, COPD with decreased ambulation due to left-sided weakness presented to the ER after a fall that occurred as she was getting out of the shower. Patient appeared to have slipped and fell. She began to have severe left-sided leg pain and was taken to the ER. In the ER, she had an x- ray done which showed distal left femur fracture. She was then transferred here for admission and evaluation by orthopedics. At baseline, patient ambulates short distances with help of a walker. She does not have any shortness of breath with this. Her COPD is well controlled and she only uses rescue inhalers once in a while. Does not have any history of cardiac disease. Hospital course: Patient was admitted for management of Displaced left distal femur fracture, no intra-articular extension and incidental finding of acute cystitis with hematuria Orthopedics was consulted and performed IM Nailing Left Femur She is seen this morning, with no new complains Her pain has been adequately controlled UTI was treated with IV Ceftriaxone. Urine cultures with pansensitive Klebsiella Pneumoniae. She has received 3 days of IV antibiotics in-patient, she will be discharged on oral medications to complete 7 days of therapy She is stable for transfer to in-patient rehab. Follow up with orthopedics and PCP Resume all other home meds - Time Spent with Patient Total time spent providing and/or coordinating discharge services: Less than 30 minutes - Constitutional Vitals: Temp Pulse Resp BP Pulse Ox 98.0 F 102 16 104/65 94 L 01/23/17 11:46 01/23/17 11:46 01/23/17 11:46 01/23/17 11:46 01/23/17 11:46 General appearance: Present: cooperative, A&O X 3, pleasant, no acute distress, answers questions appropriately - Head Head exam: Present: atraumatic, normocephalic - Eye Eye exam: Present: PERRL, conjuntiva pink, sclera anicteric Pupils: Present: PERRL - Neck Neck exam general surgery: Present: supple, trachea midline. Absent: lymphadenopathy - Respiratory Respiratory exam: Present: CTAB. Absent: accessory muscle use, rales, rhonchi, wheezes - Cardiovascular Cardiovascular exam: Present: RRR, +S1, +S2. Absent: diastolic murmur, gallop, rubs, systolic murmur - GI/Abdominal GI/Abdominal exam: Present: normal bowel sounds, soft, no peritoneal signs. Absent: distended, tenderness - Extremities Exam Extremities exam: Present: warm, radial pulses palpable and symetrical. Absent : calf tenderness, cyanotic, pedal edema - Neurological Exam Neurological exam: Present: CN II-XII intact, oriented X3, no focal deficits. Absent: pronater drift, facial droop, speech deficit - Skin Skin exam: Present: dry, intact - VTE Documentation of Mechanical Device: Intermittent pneumatic compression device
== END 2017-01-23 13:31 | DRG 481 ==
LOC: 3NENU → SUATTDRO 20:00
PROVIDERS: ADMIT Internal Medicine; ATTEND Internal Medicine

== ENCOUNTER 2021-06-13 10:45 | Inpatient (IN) ==
[2021-06-13] MEDS ORDERED: Piperacillin/Tazobactam 3.375 GM in Water for inj. (sterile) 20 ML IVP ONE (10:54)
[2021-06-13] MEDS ORDERED: 0.9 % Sodium Chloride 1,000 ML IVC ONE ×2 (10:54→12:10)
[2021-06-13 11:16] LABS: Basophils # 0.1 K/mcL (0.0-0.2); Basophils % 0.9 %; Eosinophils # 0.6 K/mcL (0.0-0.6); Eosinophils % 5.6 %; Hematocrit 37.7 % (35.3-44.9); Hemoglobin 11.4 g/dL (11.5-15.4); Immature Granulocytes % 0.7 % (0-4); Lymphocytes # 1.6 K/mcL (0.6-4.6); Lymphocytes % 14.6 %; Mean Corpuscular HGB Conc 30.2 g/dL (31.6-35.5); Mean Corpuscular Hemoglobin 27.3 pg (28.0-33.3); Mean Corpuscular Volume 90.4 fL (83.0-100.0); Mean Platelet Volume 8.9 fL (9.4-12.4); Monocytes # 1.2 K/mcL (0.0-1.3); Monocytes % 10.5 %; Neutrophils # 7.6 K/mcL (1.6-8.9); Platelet Count 296 K/mcL (140-400); Red Blood Count 4.17 M/mcL (3.82-4.97); Red Cell Distribution Width 18.4 % (11.5-14.5); Segmented Neutrophils % 67.7 %; White Blood Count 11.2 K/mcL (4.3-11.1)
[2021-06-13 11:25] LABS: INR 1.2; Prothrombin Time 13.4 Seconds (9.4-12.1)
[2021-06-13 11:27] LABS: Activated Partial Thrombo Time 49.4 Seconds (26.0-36.0)
[2021-06-13 11:58] LABS: Alanine Aminotransferase 11 Units/L (7-52); Albumin 3.9 g/dL (3.5-5.7); Albumin/Globulin Ratio 1.1 (1.1-2.2); Alkaline Phosphatase 75 Units/L (34-104); Aspartate Amino Transferase 11 Units/L (13-39); BUN/Creatinine Ratio 15 (6-26); Bilirubin,Direct 0.1 mg/dL (0.0-0.2); Bilirubin,Indirect 0.2 mg/dL (0.0-1.0); Bilirubin,Total 0.3 mg/dL (0.3-1.0); Blood Urea Nitrogen 57 mg/dL (8-23); Calcium 10.5 mg/dL (8.6-10.3); Carbon Dioxide 18 mEq/L (23-29); Chloride 108 mEq/L (98-107); Globulin 3.5 g/dL (2.4-3.5); Glucose 96 mg/dL (70-105); Magnesium 1.7 mg/dL (1.6-2.6); Osmolality,Calculated 306 (280-300); Phosphorous 3.6 mg/dL (2.7-4.5); Sodium 140 mEq/L (136-145); Total Protein 7.4 g/dL (6.4-8.9); Troponin I < 0.03 ng/mL (< 0.04); eGFR For African Americans 14 (> 60); eGFR For Non-African Americans 12 (> 60)
[2021-06-13 12:03] LABS: Bilirubin,Urine Negative (Negative); Blood,Urine Large (Negative); Clarity,Urine Cloudy (Clear); Color,Urine Yellow (Yellow); Glucose,Urine (UA) Normal (Normal); Ketones,Urine Trace mg/dL (Negative); Leukocyte Esterase,Urine Moderate (Negative); Nitrite,Urine Negative (Negative); PH,Urine 6.5 pH Units (5.0-8.0); Protein,Urine >=300 mg/dL (Neg-Trace); Specific Gravity,Urine 1.025 (1.010-1.025); Urobilinogen,Urine Normal (Normal)
[2021-06-13 12:08] LABS: WBC,Urine TNTC per hpf (0-3)
[2021-06-13 12:09] LABS: Bacteria,Urine Present per hpf (None-Few); RBC,Urine Present per hpf (0-3); Squamous Epithelial Cell,Urine Present per hpf (None-Few)
[2021-06-13] MEDS ORDERED: Ondansetron ODT 4 MG TAB.RAPDIS SL PRN (17:43)
[2021-06-13] MEDS ORDERED: Melatonin 3 MG TABLET PO PRN (17:43)
[2021-06-13] MEDS ORDERED: Naloxone 0.4 MG/ML INJ IVP PRN (17:43)
[2021-06-13] MEDS ORDERED: clonazePAM 0.5 MG TABLET PO PRN (19:04)
[2021-06-13] MEDS: Budesonide/Formoterol 160/4.5 1 PUFF INH IH SCH (20:06)
[2021-06-13] MEDS: Gabapentin 100 MG CAPSULE PO SCH (20:17)
[2021-06-13] MEDS: 0.9 % Sodium Chloride 1,000 ML IVC SCH (20:18)
[2021-06-13 21:04] LABS: Basophils # 0.1 K/mcL (0.0-0.2); Basophils % 0.7 %; Eosinophils # 0.5 K/mcL (0.0-0.6); Eosinophils % 3.2 %; Hematocrit 41.1 % (35.3-44.9); Hemoglobin 11.9 g/dL (11.5-15.4); Immature Granulocytes % 0.7 % (0-4); Lymphocytes % 13.5 %; Mean Corpuscular Volume 93.2 fL (83.0-100.0); Mean Platelet Volume 8.6 fL (9.4-12.4); Monocytes % 6.6 %; Neutrophils # 10.9 K/mcL (1.6-8.9); Platelet Count 249 K/mcL (140-400); Red Blood Count 4.41 M/mcL (3.82-4.97); Red Cell Distribution Width 18.6 % (11.5-14.5); Segmented Neutrophils % 75.3 %; White Blood Count 14.5 K/mcL (4.3-11.1)
[2021-06-13 21:29] LABS: Albumin 3.8 g/dL (3.5-5.7); Calcium 9.3 mg/dL (8.6-10.3); Potassium 5.1 mEq/L (3.5-5.1)
[2021-06-13 21:48] LABS: Albumin/Globulin Ratio 1.3 (1.1-2.2); Bilirubin,Total 0.3 mg/dL (0.3-1.0); Total Protein 6.8 g/dL (6.4-8.9)
[2021-06-13] MEDS ORDERED: *HR* Metoprolol 5 MG/5 ML VIAL IVP ONE (21:57)
[2021-06-13] MEDS ORDERED: Piperacillin/Tazobactam 3.375 GM in 0.9 % Sodium Chloride Mini Bag 100 ML IVPB SCH (23:00)
[2021-06-14 08:09] LABS: Calcium 8.8 mg/dL (8.6-10.3); Potassium 4.7 mEq/L (3.5-5.1)
[2021-06-14] MEDS: 0.9 % Sodium Chloride 1,000 ML IVC SCH (08:23)
[2021-06-14] MEDS: Cholecalciferol (D-3) 1,000 UNIT (25MCG) TABLET PO SCH (08:24)
[2021-06-14] MEDS: Gabapentin 100 MG CAPSULE PO SCH ×2 (08:24→19:58)
[2021-06-14] MEDS: Loratadine 10 MG TABLET PO SCH (08:24)
[2021-06-14] MEDS: lisinopriL 10 MG TABLET PO SCH (08:24)
[2021-06-14] MEDS: Aspirin Enteric Coated 81 MG Tablet PO SCH (08:24)
[2021-06-14 09:54] LABS: Basophils # 0.1 K/mcL (0.0-0.2); Basophils % 0.6 %; Eosinophils # 0.5 K/mcL (0.0-0.6); Eosinophils % 2.9 %; Hematocrit 33.3 % (35.3-44.9); Hemoglobin 10.6 g/dL (11.5-15.4); Immature Granulocytes % 0.8 % (0-4); Lymphocytes % 11.7 %; Mean Corpuscular HGB Conc 31.8 g/dL (31.6-35.5); Mean Corpuscular Hemoglobin 29.5 pg (28.0-33.3); Mean Corpuscular Volume 92.8 fL (83.0-100.0); Mean Platelet Volume 10.1 fL (9.4-12.4); Monocytes # 0.9 K/mcL (0.0-1.3); Monocytes % 5.2 %; Neutrophils # 13.2 K/mcL (1.6-8.9); Nucleated Red Blood Cells 0.1 /100 WBC (0); Platelet Count 153 K/mcL (140-400); Red Blood Count 3.59 M/mcL (3.82-4.97); Red Cell Distribution Width 20.2 % (11.5-14.5); Segmented Neutrophils % 78.8 %; White Blood Count 16.8 K/mcL (4.3-11.1)
[2021-06-14] MEDS: Budesonide/Formoterol 160/4.5 1 PUFF INH IH SCH ×2 (10:21→20:20)
[2021-06-14] MEDS ORDERED: Piperacillin/Tazobactam 3.375 GM in 0.9 % Sodium Chloride Mini Bag 100 ML IVPB SCH (11:00)
[2021-06-14] MEDS: Baclofen 10 MG TABLET PO SCH ×2 (14:24→19:58)
[2021-06-14] MEDS: *HR* Heparin 5,000 UNIT/ML VIAL SQ SCH ×2 (14:45→20:02)
[2021-06-15] MEDS: *HR* Heparin 5,000 UNIT/ML VIAL SQ SCH ×3 (02:45→22:30)
[2021-06-15 03:03] LABS: Hematocrit 32.2 % (35.3-44.9); Hemoglobin 10.2 g/dL (11.5-15.4); Mean Corpuscular HGB Conc 31.7 g/dL (31.6-35.5); Mean Corpuscular Hemoglobin 27.8 pg (28.0-33.3); Mean Corpuscular Volume 87.7 fL (83.0-100.0); Mean Platelet Volume 10.6 fL (9.4-12.4); Platelet Count 178 K/mcL (140-400); Red Blood Count 3.67 M/mcL (3.82-4.97); Red Cell Distribution Width 18.5 % (11.5-14.5); White Blood Count 15.6 K/mcL (4.3-11.1)
[2021-06-15 03:26] LABS: Albumin/Globulin Ratio 1.2 (1.1-2.2); Bilirubin,Total 0.4 mg/dL (0.3-1.0); Calcium 8.3 mg/dL (8.6-10.3); Globulin 2.6 g/dL (2.4-3.5); Potassium 4.3 mEq/L (3.5-5.1); Total Protein 5.6 g/dL (6.4-8.9)
[2021-06-15] MEDS: Budesonide/Formoterol 160/4.5 1 PUFF INH IH SCH ×2 (07:47→19:48)
[2021-06-15] MEDS: Cholecalciferol (D-3) 1,000 UNIT (25MCG) TABLET PO SCH (09:26)
[2021-06-15] MEDS: Lactobacillus 1 EACH CAP.SPRINK PO SCH (09:26)
[2021-06-15] MEDS: predniSONE 5 MG TABLET PO SCH (09:26)
[2021-06-15] MEDS: Aspirin Enteric Coated 81 MG Tablet PO SCH (09:26)
[2021-06-15] MEDS: Gabapentin 100 MG CAPSULE PO SCH ×2 (09:26→22:29)
[2021-06-15] MEDS: Baclofen 10 MG TABLET PO SCH ×3 (09:26→22:29)
[2021-06-15] MEDS: lisinopriL 10 MG TABLET PO SCH (09:26)
[2021-06-15] MEDS: Loratadine 10 MG TABLET PO SCH (09:26)
[2021-06-15] MEDS: Ampicillin 2,000 MG in 0.9 % Sodium Chloride Mini Bag 100 ML IVPB SCH ×2 (09:26→17:17)
[2021-06-15] MEDS: Lidocaine 4% CREAM (LMX) 5 GM TP PRN (09:31)
[2021-06-15] MEDS: Ringers Solution, Lactated 1,000 ML IVC SCH ×2 (13:13→22:31)
[2021-06-16] MEDS: Ampicillin 2,000 MG in 0.9 % Sodium Chloride Mini Bag 100 ML IVPB SCH ×2 (04:11→08:43)
[2021-06-16] MEDS: *HR* Heparin 5,000 UNIT/ML VIAL SQ SCH ×3 (06:03→19:43)
[2021-06-16] MEDS: Acetaminophen 325 MG TABLET PO PRN ×2 (06:13→22:33)
[2021-06-16 07:12] LABS: Hematocrit 29.2 % (35.3-44.9); Hemoglobin 8.9 g/dL (11.5-15.4); Mean Corpuscular HGB Conc 30.5 g/dL (31.6-35.5); Mean Corpuscular Hemoglobin 27.1 pg (28.0-33.3); Mean Corpuscular Volume 88.8 fL (83.0-100.0); Mean Platelet Volume 9.3 fL (9.4-12.4); Platelet Count 226 K/mcL (140-400); Red Blood Count 3.29 M/mcL (3.82-4.97); Red Cell Distribution Width 18.6 % (11.5-14.5); White Blood Count 9.7 K/mcL (4.3-11.1)
[2021-06-16 07:31] LABS: Alanine Aminotransferase 10 Units/L (7-52); Albumin 2.7 g/dL (3.5-5.7); Alkaline Phosphatase 67 Units/L (34-104); Aspartate Amino Transferase 19 Units/L (13-39); BUN/Creatinine Ratio 16 (6-26); Bilirubin,Total 0.2 mg/dL (0.3-1.0); Blood Urea Nitrogen 17 mg/dL (8-23); Calcium 8.1 mg/dL (8.6-10.3); Carbon Dioxide 20 mEq/L (23-29); Chloride 112 mEq/L (98-107); Globulin 2.7 g/dL (2.4-3.5); Glucose 82 mg/dL (70-105); Osmolality,Calculated 291 (280-300); Potassium 3.9 mEq/L (3.5-5.1); Sodium 140 mEq/L (136-145); Total Protein 5.4 g/dL (6.4-8.9); eGFR For African Americans > 60 (> 60); eGFR For Non-African Americans 52 (> 60)
[2021-06-16] MEDS: Budesonide/Formoterol 160/4.5 1 PUFF INH IH SCH ×2 (07:40→19:39)
[2021-06-16] MEDS: Lactobacillus 1 EACH CAP.SPRINK PO SCH (08:36)
[2021-06-16] MEDS: Cholecalciferol (D-3) 1,000 UNIT (25MCG) TABLET PO SCH (08:36)
[2021-06-16] MEDS: Baclofen 10 MG TABLET PO SCH ×3 (08:36→19:41)
[2021-06-16] MEDS: Loratadine 10 MG TABLET PO SCH (08:37)
[2021-06-16] MEDS: Aspirin Enteric Coated 81 MG Tablet PO SCH (08:37)
[2021-06-16] MEDS: predniSONE 5 MG TABLET PO SCH (08:38)
[2021-06-16] MEDS: Gabapentin 100 MG CAPSULE PO SCH ×2 (08:38→19:41)
[2021-06-16] MEDS: lisinopriL 10 MG TABLET PO SCH (08:46)
[2021-06-16] MEDS: Ringers Solution, Lactated 1,000 ML IVC SCH ×2 (10:09→19:44)
[2021-06-16] MEDS: Lidocaine 4% CREAM (LMX) 5 GM TP PRN (13:49)
[2021-06-16] MEDS ORDERED: Ampicillin 2,000 MG in 0.9 % Sodium Chloride Mini Bag 100 ML IVPB SCH (15:00)
[2021-06-16] MEDS: Amoxicillin 500 MG CAPSULE PO SCH (19:41)
[2021-06-16 22:09] LABS: Adenovirus Not Detected (Not Detect); Bordetella Pertussis Not Detected (Not Detect); Chlamydophila pneumoniae Not Detected (Not Detect); Coronavirus 229E Not Detected (Not Detect); Coronavirus HKU1 Not Detected (Not Detect); Coronavirus NL63 Not Detected (Not Detect); Coronavirus OC43 Not Detected (Not Detect); Human Metapneumovirus Not Detected (Not Detect); Human Rhinovirus/Enterovirus Not Detected (Not Detect); Influenza A Subtype 2009 H1 Not Detected (Not Detect); Influenza B Not Detected (Not Detect); Mycoplasma pneumoniae Not Detected (Not Detect); Parainfluenza Virus 1 Not Detected (Not Detect); Parainfluenza Virus 2 Not Detected (Not Detect); Parainfluenza Virus 3 Not Detected (Not Detect); Parainfluenza Virus 4 Not Detected (Not Detect); Respiratory Syncytial Virus Not Detected (Not Detect); SARS-CoV-2 Not Detected (Not Detect)
[2021-06-17 02:59] LABS: Hematocrit 28.6 % (35.3-44.9); Hemoglobin 8.5 g/dL (11.5-15.4); Mean Corpuscular HGB Conc 29.7 g/dL (31.6-35.5); Mean Corpuscular Volume 87.5 fL (83.0-100.0); Mean Platelet Volume 9.1 fL (9.4-12.4); Platelet Count 261 K/mcL (140-400); Red Blood Count 3.27 M/mcL (3.82-4.97); White Blood Count 9.4 K/mcL (4.3-11.1)
[2021-06-17 03:14] LABS: Alanine Aminotransferase 12 Units/L (7-52); Albumin 2.6 g/dL (3.5-5.7); Alkaline Phosphatase 56 Units/L (34-104); Aspartate Amino Transferase 21 Units/L (13-39); BUN/Creatinine Ratio 16 (6-26); Bilirubin,Total 0.2 mg/dL (0.3-1.0); Blood Urea Nitrogen 15 mg/dL (8-23); Calcium 7.9 mg/dL (8.6-10.3); Carbon Dioxide 22 mEq/L (23-29); Chloride 113 mEq/L (98-107); Globulin 2.6 g/dL (2.4-3.5); Glucose 80 mg/dL (70-105); Osmolality,Calculated 292 (280-300); Potassium 3.7 mEq/L (3.5-5.1); Sodium 141 mEq/L (136-145); Total Protein 5.2 g/dL (6.4-8.9); eGFR For African Americans > 60 (> 60); eGFR For Non-African Americans > 60 (> 60)
[2021-06-17] MEDS: *HR* Heparin 5,000 UNIT/ML VIAL SQ SCH (04:43)
[2021-06-17] MEDS: Ringers Solution, Lactated 1,000 ML IVC SCH (05:52)
[2021-06-17 06:46] VITALS: BP 147/79; PULSE 89; TEMP 98
[2021-06-17] MEDS: Budesonide/Formoterol 160/4.5 1 PUFF INH IH SCH (07:51)
[2021-06-17 08:03] VITALS: O2SAT 95
[2021-06-17] MEDS: Amoxicillin 500 MG CAPSULE PO SCH (09:01)
[2021-06-17] MEDS: Cholecalciferol (D-3) 1,000 UNIT (25MCG) TABLET PO SCH (09:01)
[2021-06-17] MEDS: Aspirin Enteric Coated 81 MG Tablet PO SCH (09:01)
[2021-06-17] MEDS: Gabapentin 100 MG CAPSULE PO SCH (09:02)
[2021-06-17] MEDS: Baclofen 10 MG TABLET PO SCH (09:02)
[2021-06-17] MEDS: Loratadine 10 MG TABLET PO SCH (09:02)
[2021-06-17] MEDS: predniSONE 5 MG TABLET PO SCH (09:02)
[2021-06-17] MEDS: Lactobacillus 1 EACH CAP.SPRINK PO SCH (09:02)
[2021-06-17] MEDS: lisinopriL 10 MG TABLET PO SCH (09:02)
== END 2021-06-17 11:57 | DRG 698 ==
LOC: EMEROOARM 10:45 → 2ANU 10:45 → SUATTDRO 14:28 → 2ANU 16:10
PROVIDERS: ADMIT Internal Medicine; ATTEND Internal Medicine

== ENCOUNTER 2021-08-18 21:44 | Inpatient (IN) ==
[2021-08-19] MEDS ORDERED: Naloxone 0.4 MG/ML INJ IVP PRN (03:35)
[2021-08-19] MEDS ORDERED: Acetaminophen 325 MG TABLET PO PRN (03:45)
[2021-08-19] MEDS ORDERED: Ondansetron 4 MG/2 ML VIAL IVP PRN (03:45)
[2021-08-19] MEDS ORDERED: 0.9 % Sodium Chloride 1,000 ML IVC SCH (03:45)
[2021-08-19] MEDS ORDERED: Albuterol 2.5 MG/3 ML NEBULIZER IH PRN (03:53)
[2021-08-19] MEDS ORDERED: *HR* Heparin 5,000 UNIT/ML VIAL IVP ONE (04:58)
[2021-08-19] MEDS ORDERED: *HR* Heparin 5,000 UNIT/ML VIAL IVP PRN ×2 (04:58)
[2021-08-19] MEDS ORDERED: Heparin 25,000UNIT/250ML 1/2NS 25,000 UNIT/250 ML IV.SOLN IVC SCH (05:00)
[2021-08-19] MEDS: 0.9 % Sodium Chloride 1,000 ML IVC SCH ×2 (05:44→09:30)
[2021-08-19] MEDS ORDERED: *HR* Metoprolol 5 MG/5 ML VIAL IVP PRN (06:10)
[2021-08-19] MEDS: Albuterol 2.5 MG/3 ML NEBULIZER IH SCH ×6 (06:20→23:05)
[2021-08-19 06:36] LABS: VBG Ionized Calcium 1.52 mmol/L (1.15-1.35)
[2021-08-19 06:40] LABS: Heparin anti-factor XA UFH 0.94 IU/mL (0.30-0.70)
[2021-08-19 06:41] LABS: INR 1.2; Prothrombin Time 13.3 Seconds (9.4-12.1)
[2021-08-19 06:53] LABS: Albumin 3.3 g/dL (3.5-5.7); Albumin/Globulin Ratio 1.6 (1.1-2.2); Bilirubin,Total 0.4 mg/dL (0.3-1.0); Calcium 11.3 mg/dL (8.6-10.3); Globulin 2.1 g/dL (2.4-3.5); Total Protein 5.4 g/dL (6.4-8.9)
[2021-08-19 06:56] LABS: Basophils # 0.1 K/mcL (0.0-0.2); Basophils % 0.7 %; Eosinophils # 0.6 K/mcL (0.0-0.6); Eosinophils % 6.8 %; Hematocrit 33.9 % (35.3-44.9); Hemoglobin 10.1 g/dL (11.5-15.4); Immature Granulocytes % 0.3 % (0-4); Lymphocytes # 1.7 K/mcL (0.6-4.6); Lymphocytes % 18.8 %; Mean Corpuscular HGB Conc 29.8 g/dL (31.6-35.5); Mean Corpuscular Hemoglobin 25.8 pg (28.0-33.3); Mean Corpuscular Volume 86.5 fL (83.0-100.0); Mean Platelet Volume 10.3 fL (9.4-12.4); Monocytes # 0.8 K/mcL (0.0-1.3); Monocytes % 8.7 %; Neutrophils # 5.7 K/mcL (1.6-8.9); Platelet Count 160 K/mcL (140-400); Red Blood Count 3.92 M/mcL (3.82-4.97); Red Cell Distribution Width 18.2 % (11.5-14.5); Segmented Neutrophils % 64.7 %; White Blood Count 8.9 K/mcL (4.3-11.1)
[2021-08-19] MEDS: Aspirin Enteric Coated 81 MG Tablet PO SCH (10:44)
[2021-08-19] MEDS: Gabapentin 100 MG CAPSULE PO SCH ×3 (10:44→19:58)
[2021-08-19] MEDS: cefTRIAXone 1,000 MG in Water for inj. (sterile) 10 ML IVP SCH (10:45)
[2021-08-19] MEDS: Budesonide/Formoterol 160/4.5 1 PUFF INH IH SCH ×2 (11:50→20:22)
[2021-08-19 13:03] LABS: Calcium 10.5 mg/dL (8.6-10.3); Potassium 3.6 mEq/L (3.5-5.1)
[2021-08-20] MEDS: Albuterol 2.5 MG/3 ML NEBULIZER IH SCH ×6 (03:40→23:39)
[2021-08-20] MEDS: Budesonide/Formoterol 160/4.5 1 PUFF INH IH SCH ×2 (07:33→20:01)
[2021-08-20 08:46] LABS: Basophils # 0.1 K/mcL (0.0-0.2); Basophils % 0.8 %; Eosinophils # 0.4 K/mcL (0.0-0.6); Eosinophils % 4.7 %; Hematocrit 30.2 % (35.3-44.9); Immature Granulocytes % 0.5 % (0-4); Lymphocytes # 2.1 K/mcL (0.6-4.6); Lymphocytes % 26.4 %; Mean Corpuscular HGB Conc 29.8 g/dL (31.6-35.5); Mean Corpuscular Hemoglobin 25.9 pg (28.0-33.3); Mean Corpuscular Volume 86.8 fL (83.0-100.0); Mean Platelet Volume 10.1 fL (9.4-12.4); Monocytes # 0.8 K/mcL (0.0-1.3); Monocytes % 10.2 %; Neutrophils # 4.5 K/mcL (1.6-8.9); Platelet Count 133 K/mcL (140-400); Red Blood Count 3.48 M/mcL (3.82-4.97); Red Cell Distribution Width 18.4 % (11.5-14.5); Segmented Neutrophils % 57.4 %; White Blood Count 7.9 K/mcL (4.3-11.1)
[2021-08-20 09:02] LABS: Calcium 9.9 mg/dL (8.6-10.3); Potassium 3.7 mEq/L (3.5-5.1)
[2021-08-20] MEDS: cefTRIAXone 1,000 MG in Water for inj. (sterile) 10 ML IVP SCH (09:25)
[2021-08-20] MEDS: Aspirin Enteric Coated 81 MG Tablet PO SCH ×2 (09:25→09:42)
[2021-08-20] MEDS: Gabapentin 100 MG CAPSULE PO SCH ×2 (09:25→14:55)
[2021-08-20] MEDS: *HR* OxyCODONE/APAP 5/325 TABLET PO PRN ×2 (11:06→23:12)
[2021-08-20] MEDS: Baclofen 10 MG TABLET PO SCH ×3 (12:56→21:10)
[2021-08-20] MEDS: lisinopriL 10 MG TABLET PO SCH (13:00)
[2021-08-20] MEDS ORDERED: Furosemide 40 MG TABLET PO PRN (14:29)
[2021-08-20] MEDS: Pantoprazole 40 MG VIAL IVP SCH (14:54)
[2021-08-21] MEDS: Gabapentin 100 MG CAPSULE PO SCH ×4 (01:10→20:24)
[2021-08-21 01:22] LABS: Basophils # 0.1 K/mcL (0.0-0.2); Basophils % 0.7 %; Eosinophils # 0.5 K/mcL (0.0-0.6); Eosinophils % 5.9 %; Hematocrit 29.5 % (35.3-44.9); Hemoglobin 9.1 g/dL (11.5-15.4); Immature Granulocytes % 0.5 % (0-4); Lymphocytes # 1.3 K/mcL (0.6-4.6); Lymphocytes % 14.9 %; Mean Corpuscular HGB Conc 30.8 g/dL (31.6-35.5); Mean Corpuscular Hemoglobin 26.3 pg (28.0-33.3); Mean Corpuscular Volume 85.3 fL (83.0-100.0); Mean Platelet Volume 9.6 fL (9.4-12.4); Monocytes % 11.4 %; Neutrophils # 5.7 K/mcL (1.6-8.9); Platelet Count 132 K/mcL (140-400); Red Blood Count 3.46 M/mcL (3.82-4.97); Red Cell Distribution Width 18.4 % (11.5-14.5); Segmented Neutrophils % 66.6 %; White Blood Count 8.5 K/mcL (4.3-11.1)
[2021-08-21 01:47] LABS: BUN/Creatinine Ratio 17 (6-26); Blood Urea Nitrogen 17 mg/dL (8-23); Calcium 9.5 mg/dL (8.6-10.3); Carbon Dioxide 21 mEq/L (23-29); Chloride 111 mEq/L (98-107); Glucose 92 mg/dL (70-105); Osmolality,Calculated 291 (280-300); Potassium 3.7 mEq/L (3.5-5.1); Sodium 140 mEq/L (136-145); eGFR For African Americans > 60 (> 60); eGFR For Non-African Americans 56 (> 60)
[2021-08-21] MEDS: Albuterol 2.5 MG/3 ML NEBULIZER IH SCH ×4 (03:48→15:26)
[2021-08-21] MEDS: *HR* Enoxaparin 40 MG/0.4 ML SYRINGE SQ SCH (05:22)
[2021-08-21] MEDS: Budesonide/Formoterol 160/4.5 1 PUFF INH IH SCH ×2 (07:15→19:52)
[2021-08-21] MEDS: lisinopriL 10 MG TABLET PO SCH (07:49)
[2021-08-21] MEDS: cefTRIAXone 1,000 MG in Water for inj. (sterile) 10 ML IVP SCH (07:50)
[2021-08-21] MEDS: Pantoprazole 40 MG VIAL IVP SCH (07:50)
[2021-08-21] MEDS: Baclofen 10 MG TABLET PO SCH ×3 (07:51→20:24)
[2021-08-21] MEDS: Aspirin Enteric Coated 81 MG Tablet PO SCH (07:51)
[2021-08-21] MEDS: predniSONE 5 MG TABLET PO SCH (07:51)
[2021-08-21] MEDS ORDERED: Fluconazole 150 MG TABLET PO ONE (11:08)
[2021-08-21] MEDS: Lactobacillus 1 EACH CAP.SPRINK PO SCH ×2 (11:25→20:24)
[2021-08-21] MEDS: *HR* OxyCODONE/APAP 5/325 TABLET PO PRN ×2 (11:28→23:31)
[2021-08-21] MEDS: Ipratropium/Albuterol Neb 3 ML IH SCH ×3 (19:52→23:51)
[2021-08-22 00:56] LABS: Hematocrit 31.9 % (35.3-44.9); Hemoglobin 9.7 g/dL (11.5-15.4); Mean Corpuscular HGB Conc 30.4 g/dL (31.6-35.5); Mean Corpuscular Hemoglobin 26.3 pg (28.0-33.3); Mean Corpuscular Volume 86.4 fL (83.0-100.0); Mean Platelet Volume 9.6 fL (9.4-12.4); Platelet Count 119 K/mcL (140-400); Red Blood Count 3.69 M/mcL (3.82-4.97); Red Cell Distribution Width 18.5 % (11.5-14.5); White Blood Count 9.6 K/mcL (4.3-11.1)
[2021-08-22 01:15] LABS: BUN/Creatinine Ratio 19 (6-26); Blood Urea Nitrogen 17 mg/dL (8-23); Calcium 9.5 mg/dL (8.6-10.3); Carbon Dioxide 20 mEq/L (23-29); Chloride 108 mEq/L (98-107); Glucose 102 mg/dL (70-105); Magnesium 1.4 mg/dL (1.6-2.6); Osmolality,Calculated 286 (280-300); Potassium 3.6 mEq/L (3.5-5.1); Sodium 137 mEq/L (136-145); eGFR For African Americans > 60 (> 60); eGFR For Non-African Americans > 60 (> 60)
[2021-08-22] MEDS: *HR* Enoxaparin 40 MG/0.4 ML SYRINGE SQ SCH (06:34)
[2021-08-22] MEDS: Ipratropium/Albuterol Neb 3 ML IH SCH ×3 (07:55→15:40)
[2021-08-22] MEDS: Budesonide/Formoterol 160/4.5 1 PUFF INH IH SCH (07:55)
[2021-08-22] MEDS: predniSONE 5 MG TABLET PO SCH (08:59)
[2021-08-22] MEDS ORDERED: lisinopriL 5 MG TABLET PO SCH (09:00)
[2021-08-22] MEDS: Baclofen 10 MG TABLET PO SCH ×2 (09:00→15:36)
[2021-08-22] MEDS: Lactobacillus 1 EACH CAP.SPRINK PO SCH (09:00)
[2021-08-22] MEDS: Aspirin Enteric Coated 81 MG Tablet PO SCH (09:00)
[2021-08-22] MEDS: Pantoprazole 40 MG VIAL IVP SCH (09:00)
[2021-08-22] MEDS: Gabapentin 100 MG CAPSULE PO SCH ×2 (09:12→15:35)
[2021-08-22] MEDS ORDERED: Magnesium Oxide 400 MG TABLET PO ONE (09:30)
[2021-08-22] MEDS: *HR* OxyCODONE/APAP 5/325 TABLET PO PRN (11:55)
[2021-08-22 12:03] VITALS: BP 109/60; PULSE 103; TEMP 98; O2SAT 94
[2021-08-22 17:09] LABS: Influenza A PCR Negative (Negative); Influenza B PCR Negative (Negative); Resp. Syncytial Virus PCR Positive (Negative)
[2021-08-22 17:10] LABS: SARS-CoV-2 by PCR (In House) Negative (Negative)
== END 2021-08-22 16:40 | disposition other institution (70) | DRG 698 ==
LOC: 2ANU → SUATTDRO 08-19 02:39
PROVIDERS: ADMIT Family Medicine; ATTEND Internal Medicine